=== PATIENT | male | born 1945 | race Hispanic/Latino ===

== ENCOUNTER 2022-05-03 05:44 | Inpatient (IN) | payer OTHER ==
[~2022-05-03] VITALS: Ht 167.6 cm; Wt 72.1 kg
[2022-05-03 06:06] LABS: BASOPHILS % (AUTO) 0.2 % (0.0-5.0); HEMATOCRIT 45.9 % (42-54); LYMPHOCYTES % (AUTO) 3.7 % (21.0-51.0); MEAN CORPUSCULAR HEMOGLOBIN 30.8 pg (27.0-33.0); MEAN CORPUSCULAR VOLUME 90.5 fL (79-99); MONOCYTES % (AUTO) 7.2 % (3.0-13.0); NEUTROPHILS % (AUTO) 87.9 % (40.0-77.0); PLATELET COUNT (AUTO) 170 K/uL (130-400); RED BLOOD CELL COUNT(AUTO) 5.07 MIL/uL (4.50-6.20); RED CELL DISTRIBUTION WIDTH 13.8 % (11.0-15.5)
[2022-05-03 06:08] LABS: WHITE BLOOD COUNT (AUTO) 31.3 K/uL (4.8-10.8)
[2022-05-03 06:26] LABS: ALBUMIN 3.5 g/dL (3.5-5.0); CREATININE 1.8 mg/dL (0.5-1.5); POTASSIUM 3.3 mmol/L (3.5-5.1); TOTAL PROTEIN, SERUM 7.7 g/dL (6.0-8.3)
[2022-05-03 06:27] LABS: APPEARANCE,URINE CLEAR (CLEAR); BILIRUBIN,URINE MODERATE (NEGATIVE); COLOR,URINE AMBER (YELLOW); GLUCOSE, URINE (UA) >=1000 mg/dL (NEGATIVE); KETONES,URINE NEGATIVE (NEGATIVE); LEUKOCYTE ESTERASE ,URINE NEGATIVE (NEGATIVE); NITRATE,URINE POSITIVE (NEGATIVE); OCCULT BLOOD,URINE SMALL (NEGATIVE); PROTEIN,URINE 100 mg/dL (NEGATIVE)
[2022-05-03 06:36] LABS: BACTERIA,URINE Few /HPF (None Seen); WBC,URINE 0-1 /HPF (0-1)
[2022-05-03 06:37] LABS: FINE GRANULAR CASTS,URINE 0-2 /LPF (None Seen)
[2022-05-03] MEDS ORDERED: LEVOFLOXACIN 500 MG/D5W 100 ML 100 ML ONE (06:37)
[2022-05-03] MEDS ORDERED: 0.9%NACL 1000ML 1,000 ML IV SCH (07:00)
[2022-05-03 07:02] LABS: LYMPHOCYTES % (MANUAL) 4 % (22-44); MAN.DIFF COMMENT-IMPRESSION MANUAL DIFFERENTIAL; MONOCYTES % (MANUAL) 6 % (2-9); PLATELET MORPHOLOGY COMMENT ADEQUATE; SEGMENTED NEUTROPHILS % 90 % (40-70)
[2022-05-03] MEDS ORDERED: ZOSYN 3.375GM +NS 50ML IV SCH (08:30)
[2022-05-03] MEDS ORDERED: MORPHINE 2 MG SYG IVP PRN (10:30)
[2022-05-03] MEDS ORDERED: ONDANSETRON 4MG INJ IVP PRN (10:30)
[2022-05-03] MEDS ORDERED: ACETAMINOPHEN 325 MG TAB PO PRN (10:30)
[2022-05-03] MEDS: DEXTROSE 5 % AND 0.9 % NACL 1,000 ML IV SCH ×2 (11:17→21:10)
[2022-05-03 12:09] VITALS: BP 131/59
[2022-05-03 12:14] LABS: INR 1.24 (0.85-1.15); PROTHROMBIN TIME 13.4 SEC (9.6-11.6)
[2022-05-03] MEDS ORDERED: PRAV40TA3 PO (12:14)
[2022-05-03] MEDS ORDERED: OMEP20TA20 PO (12:14)
[2022-05-03] MEDS ORDERED: LISI40TA9 PO (12:14)
[2022-05-03] MEDS ORDERED: HYDR12.54 PO (12:14)
[2022-05-03 12:16] LABS: PARTIAL THROMBOPLASTIN TIME 34.6 SEC (26.3-35.5)
[2022-05-03] MEDS ORDERED: METO25TA6 PO (12:16)
[2022-05-03] MEDS ORDERED: DAPA5TAB PO (12:16)
[2022-05-03 16:20] VITALS: BP 137/67
[2022-05-03 20:25] VITALS: BP 134/66
[2022-05-03] MEDS: ZOSYN 3.375GM +NS 50ML IV SCH (21:10)
[2022-05-03 23:58] VITALS: BP 121/69
[2022-05-04] VITALS (23 sets, daily range): BP systolic 124–173; BP diastolic 62–100
[2022-05-04 06:17] LABS: INR 1.17 (0.85-1.15); PROTHROMBIN TIME 12.6 SEC (9.6-11.6)
[2022-05-04] MEDS ORDERED: D5W IV SCH (09:00)
[2022-05-04] MEDS ORDERED: LEVOFLOXACIN IV SCH (09:00)
[2022-05-04] MEDS: ZOSYN 3.375GM +NS 50ML IV SCH ×2 (09:40→21:57)
[2022-05-04 10:01] LABS: HEMATOCRIT 40.5 % (42-54); MEAN CORPUSCULAR HEMOGLOBIN 30.8 pg (27.0-33.0); MEAN CORPUSCULAR HGB CONC 33.3 g/dL (32.0-36.0); MEAN CORPUSCULAR VOLUME 92.3 fL (79-99); RED BLOOD CELL COUNT(AUTO) 4.39 MIL/uL (4.50-6.20); RED CELL DISTRIBUTION WIDTH 13.9 % (11.0-15.5); WHITE BLOOD COUNT (AUTO) 19.7 K/uL (4.8-10.8)
[2022-05-04 10:34] LABS: CREATININE 1.3 mg/dL (0.5-1.5)
[2022-05-04] MEDS ORDERED: IOHEXOL-350 50ML VIAL IV ONE (13:06)
[2022-05-04] MEDS ORDERED: SUGAMMADEX SODIUM 200 MG/2 ML VIAL IV ONE (15:38)
[2022-05-04] MEDS ORDERED: ROCURONIUM 10MG/1ML SYR 10 MG/ML ML ONE (15:46)
[2022-05-04] MEDS ORDERED: PROPOFOL 10 MG/ML 20ML VIAL IV ONE (15:47)
[2022-05-04] MEDS: POTASSIUM CHLORIDE 20MEQ/100ML 100 ML IV PRN ×2 (17:25→22:01)
[2022-05-04] MEDS: DEXTROSE 5 % AND 0.9 % NACL 1,000 ML IV SCH (22:02)
[2022-05-05] MEDS: DEXTROSE 5 % AND 0.9 % NACL 1,000 ML IV SCH ×2 (03:01→20:49)
[2022-05-05 03:42] VITALS: BP 136/72
[2022-05-05 04:40] LABS: HEMATOCRIT 39.4 % (42-54); MEAN CORPUSCULAR HEMOGLOBIN 30.1 pg (27.0-33.0); MEAN CORPUSCULAR HGB CONC 32.7 g/dL (32.0-36.0); MEAN CORPUSCULAR VOLUME 92.1 fL (79-99); RED BLOOD CELL COUNT(AUTO) 4.28 MIL/uL (4.50-6.20); RED CELL DISTRIBUTION WIDTH 13.7 % (11.0-15.5); WHITE BLOOD COUNT (AUTO) 13.3 K/uL (4.8-10.8)
[2022-05-05 04:50] LABS: CREATININE 1.1 mg/dL (0.5-1.5)
[2022-05-05 05:14] LABS: POTASSIUM 2.7 mmol/L (3.5-5.1)
[2022-05-05] MEDS: LIDOCAINE HCL-MPF 1% 2ML VIAL IV PRN ×2 (05:33→13:25)
[2022-05-05] MEDS: POTASSIUM CHLORIDE 20MEQ/100ML 100 ML IV PRN ×2 (05:33→13:25)
[2022-05-05 08:00] VITALS: BP 146/81
[2022-05-05] MEDS: ZOSYN 3.375GM +NS 50ML IV SCH ×2 (08:24→20:52)
[2022-05-05 12:00] VITALS: BP 139/78
[2022-05-05 16:03] VITALS: BP 145/84
[2022-05-05] MEDS ORDERED: VITAD50000 PO (18:30)
[2022-05-05 20:07] VITALS: BP 148/81
[2022-05-05] MEDS: METOPROLOL TARTRATE 25 MG TAB PO SCH (20:52)
[2022-05-05] MEDS ORDERED: ATORVASTATIN 10 MG TABLET ONE (21:04)
[2022-05-05] MEDS ORDERED: LISINOPRIL 40 MG TABLET ONE (21:04)
[2022-05-06 00:23] VITALS: BP 142/80
[2022-05-06 03:57] VITALS: BP 148/86
[2022-05-06] MEDS: DEXTROSE 5 % AND 0.9 % NACL 1,000 ML IV SCH ×2 (05:10→21:38)
[2022-05-06 05:11] LABS: HEMATOCRIT 37.8 % (42-54); MEAN CORPUSCULAR HEMOGLOBIN 30.3 pg (27.0-33.0); MEAN CORPUSCULAR HGB CONC 33.9 g/dL (32.0-36.0); MEAN CORPUSCULAR VOLUME 89.4 fL (79-99); RED BLOOD CELL COUNT(AUTO) 4.23 MIL/uL (4.50-6.20); RED CELL DISTRIBUTION WIDTH 13.6 % (11.0-15.5); WHITE BLOOD COUNT (AUTO) 10.4 K/uL (4.8-10.8)
[2022-05-06 05:41] LABS: ALBUMIN 2.2 g/dL (3.5-5.0); MAGNESIUM 1.9 mg/dL (1.80-2.40); TOTAL PROTEIN, SERUM 5.9 g/dL (6.0-8.3)
[2022-05-06 05:50] LABS: POTASSIUM 2.5 mmol/L (3.5-5.1)
[2022-05-06] MEDS: POTASSIUM CHLORIDE 10% ELIXIR 20 MEQ/15 ML UDCUP PO PRN ×6 (06:42→23:03)
[2022-05-06] MEDS: POTASSIUM CHLORIDE 20MEQ/100ML 100 ML IV PRN ×2 (06:42→16:58)
[2022-05-06] MEDS: LIDOCAINE HCL-MPF 1% 2ML VIAL IV PRN (06:44)
[2022-05-06 07:49] VITALS: BP 134/74
[2022-05-06] MEDS: METOPROLOL TARTRATE 25 MG TAB PO SCH ×2 (08:28→21:07)
[2022-05-06] MEDS: PANTOPRAZOLE 40 MG TAB DR PO SCH (08:29)
[2022-05-06] MEDS: HYDROCHLOROTHIAZIDE 25 MG TABLET PO SCH (08:29)
[2022-05-06] MEDS: ZOSYN 3.375GM +NS 50ML IV SCH ×2 (08:29→21:04)
[2022-05-06] MEDS ORDERED: DAPAGLIFLOZIN PROPANEDIOL 5 MG PO SCH (09:00)
[2022-05-06] MEDS ORDERED: LISINOPRIL 40 MG TABLET PO SCH (09:00)
[2022-05-06] MEDS ORDERED: ATORVASTATIN 10 MG TABLET PO SCH (09:00)
[2022-05-06] MEDS ORDERED: HOME MEDICATION 1 EACH PO SCH (09:00)
[2022-05-06 11:25] VITALS: BP 144/85
[2022-05-06] MEDS: ARTIFICAL TEARS SOL 15 ML OU SCH ×2 (14:24→21:08)
[2022-05-06 15:23] VITALS: BP 147/87
[2022-05-06 20:07] VITALS: BP 140/85
[2022-05-06] MEDS: TAMSULOSIN HCL 0.4 MG CAP.ER.24H PO SCH (21:05)
[2022-05-06] MEDS: ATORVASTATIN 10 MG TABLET PO SCH (21:05)
[2022-05-06] MEDS: LISINOPRIL 40 MG TABLET PO SCH (21:07)
[2022-05-06] MEDS ORDERED: HALOPERIDOL INJ 5 MG/ML VIAL IM SCH (22:00)
[2022-05-07 00:56] VITALS: BP 143/83
[2022-05-07 05:17] VITALS: BP 137/74
[2022-05-07] MEDS: DEXTROSE 5 % AND 0.9 % NACL 1,000 ML IV SCH ×2 (07:50→17:17)
[2022-05-07 07:53] VITALS: BP 142/76
[2022-05-07] MEDS: METOPROLOL TARTRATE 25 MG TAB PO SCH ×2 (09:50→21:19)
[2022-05-07] MEDS: ZOSYN 3.375GM +NS 50ML IV SCH ×2 (09:50→21:19)
[2022-05-07] MEDS: PANTOPRAZOLE 40 MG TAB DR PO SCH (09:50)
[2022-05-07] MEDS: HYDROCHLOROTHIAZIDE 25 MG TABLET PO SCH (09:50)
[2022-05-07] MEDS: **HM** FARXIGA 5MG PO SCH (09:51)
[2022-05-07] MEDS: ARTIFICAL TEARS SOL 15 ML OU SCH ×3 (09:52→21:29)
[2022-05-07 11:22] VITALS: BP 134/76
[2022-05-07] MEDS ORDERED: IOHEXOL 350 MG/ML 100ML INFUS..BTL IV ONE (11:56)
[2022-05-07 15:45] VITALS: BP 142/77
[2022-05-07] MEDS: POTASSIUM CHLORIDE 10% ELIXIR 20 MEQ/15 ML UDCUP PO PRN ×2 (17:26→21:20)
[2022-05-07 20:00] VITALS: BP 137/79
[2022-05-07] MEDS: TAMSULOSIN HCL 0.4 MG CAP.ER.24H PO SCH (21:20)
[2022-05-07] MEDS: LISINOPRIL 40 MG TABLET PO SCH (21:20)
[2022-05-07] MEDS: ATORVASTATIN 10 MG TABLET PO SCH (21:20)
[2022-05-08] VITALS (7 sets, daily range): BP systolic 120–143; BP diastolic 67–86
[2022-05-08 04:47] LABS: HEMATOCRIT 38.9 % (42-54); MEAN CORPUSCULAR HEMOGLOBIN 29.8 pg (27.0-33.0); MEAN CORPUSCULAR HGB CONC 33.9 g/dL (32.0-36.0); MEAN CORPUSCULAR VOLUME 87.8 fL (79-99); RED BLOOD CELL COUNT(AUTO) 4.43 MIL/uL (4.50-6.20); RED CELL DISTRIBUTION WIDTH 14.2 % (11.0-15.5); WHITE BLOOD COUNT (AUTO) 11.4 K/uL (4.8-10.8)
[2022-05-08 06:34] LABS: CREATININE 1.1 mg/dL (0.5-1.5); MAGNESIUM 1.9 mg/dL (1.80-2.40); PHOSPHORUS 2.2 mg/dL (2.5-4.9); POTASSIUM 3.3 mmol/L (3.5-5.1)
[2022-05-08] MEDS: HYDROCHLOROTHIAZIDE 25 MG TABLET PO SCH (09:10)
[2022-05-08] MEDS: METOPROLOL TARTRATE 25 MG TAB PO SCH ×2 (09:10→20:59)
[2022-05-08] MEDS: ZOSYN 3.375GM +NS 50ML IV SCH ×2 (09:10→20:59)
[2022-05-08] MEDS: PANTOPRAZOLE 40 MG TAB DR PO SCH (09:10)
[2022-05-08] MEDS: POTASSIUM CHLORIDE 10% ELIXIR 20 MEQ/15 ML UDCUP PO PRN ×2 (09:11→13:31)
[2022-05-08] MEDS: ARTIFICAL TEARS SOL 15 ML OU SCH ×3 (09:11→21:00)
[2022-05-08] MEDS: **HM** FARXIGA 5MG PO SCH (09:13)
[2022-05-08] MEDS: DEXTROSE 5 % AND 0.9 % NACL 1,000 ML IV SCH (09:23)
[2022-05-08] MEDS ORDERED: MAGNESIUM 2GM PREMIX 50ML 50 ML IV PRN (18:00)
[2022-05-08] MEDS: LISINOPRIL 40 MG TABLET PO SCH (21:00)
[2022-05-08] MEDS: TAMSULOSIN HCL 0.4 MG CAP.ER.24H PO SCH (21:00)
[2022-05-08] MEDS: ATORVASTATIN 10 MG TABLET PO SCH (21:00)
[2022-05-09 03:05] VITALS: BP 132/67
[2022-05-09] MEDS: DEXTROSE 5 % AND 0.9 % NACL 1,000 ML IV SCH ×3 (04:10→19:18)
[2022-05-09 07:43] VITALS: BP 122/71
[2022-05-09] MEDS: PANTOPRAZOLE 40 MG TAB DR PO SCH (08:42)
[2022-05-09] MEDS: HYDROCHLOROTHIAZIDE 25 MG TABLET PO SCH (08:42)
[2022-05-09] MEDS: METOPROLOL TARTRATE 25 MG TAB PO SCH ×2 (08:42→22:09)
[2022-05-09] MEDS: ZOSYN 3.375GM +NS 50ML IV SCH ×2 (08:45→22:11)
[2022-05-09] MEDS: ARTIFICAL TEARS SOL 15 ML OU SCH ×3 (08:45→22:12)
[2022-05-09] MEDS: **HM** FARXIGA 5MG PO SCH (08:46)
[2022-05-09 10:51] VITALS: BP 120/67
[2022-05-09] MEDS: POTASSIUM CHLORIDE 10% ELIXIR 20 MEQ/15 ML UDCUP PO PRN ×3 (11:56→22:10)
[2022-05-09 16:12] VITALS: BP 140/80
[2022-05-09 20:01] VITALS: BP 129/81
[2022-05-09] MEDS: LISINOPRIL 40 MG TABLET PO SCH (22:09)
[2022-05-09] MEDS: ATORVASTATIN 10 MG TABLET PO SCH (22:09)
[2022-05-09] MEDS: TAMSULOSIN HCL 0.4 MG CAP.ER.24H PO SCH (22:09)
[2022-05-09 23:42] VITALS: BP 147/75
[2022-05-10] VITALS (25 sets, daily range): BP systolic 103–157; BP diastolic 53–79
[2022-05-10 05:19] LABS: HEMATOCRIT 37.3 % (42-54); MEAN CORPUSCULAR HGB CONC 33.2 g/dL (32.0-36.0); MEAN CORPUSCULAR VOLUME 90.1 fL (79-99); RED BLOOD CELL COUNT(AUTO) 4.14 MIL/uL (4.50-6.20); RED CELL DISTRIBUTION WIDTH 15.2 % (11.0-15.5); WHITE BLOOD COUNT (AUTO) 11.4 K/uL (4.8-10.8)
[2022-05-10 05:36] LABS: ALBUMIN 2.2 g/dL (3.5-5.0); CREATININE 1.2 mg/dL (0.5-1.5); MAGNESIUM 1.9 mg/dL (1.80-2.40); POTASSIUM 3.6 mmol/L (3.5-5.1); TOTAL PROTEIN, SERUM 6.2 g/dL (6.0-8.3)
[2022-05-10] MEDS: PANTOPRAZOLE 40 MG TAB DR PO SCH (08:54)
[2022-05-10] MEDS: HYDROCHLOROTHIAZIDE 25 MG TABLET PO SCH (08:54)
[2022-05-10] MEDS: **HM** FARXIGA 5MG PO SCH (08:54)
[2022-05-10] MEDS: ZOSYN 3.375GM +NS 50ML IV SCH ×2 (08:55→20:57)
[2022-05-10] MEDS: METOPROLOL TARTRATE 25 MG TAB PO SCH ×2 (09:00→20:57)
[2022-05-10] MEDS: ARTIFICAL TEARS SOL 15 ML OU SCH ×3 (09:06→20:57)
[2022-05-10] MEDS ORDERED: CEFAZOLIN SODIUM 1 GM VIAL ONE (11:38)
[2022-05-10] MEDS ORDERED: BUPIVACAINE/PF 0.25% 30ML VIAL IJ ONE (11:38)
[2022-05-10] MEDS ORDERED: LIDOCAINE 1%-EPI 1:100,000 20 ML VIAL IJ ONE (11:38)
[2022-05-10] MEDS ORDERED: 0.9%NACL 1000ML 1,000 ML IV ONE (12:07)
[2022-05-10] MEDS ORDERED: GLYCOPYRROLATE 1 MG/5 ML SYRINGE ONE (13:19)
[2022-05-10] MEDS ORDERED: SUCCINYLCHOLINE CHLORIDE 20 MG/ML 10 ML VIAL ONE (13:19)
[2022-05-10] MEDS ORDERED: DEXAMETHASONE SOD PHOSPHATE 10MG/ML 1ML VIAL ONE (13:19)
[2022-05-10] MEDS ORDERED: PROPOFOL 10 MG/ML 20ML VIAL IV ONE (13:20)
[2022-05-10] MEDS ORDERED: NEOSTIGMINE 5MG/5ML SYR IV ONE (13:20)
[2022-05-10] MEDS ORDERED: MIDAZOLAM HCL 1 MG/ML 2ML VIAL ONE (13:20)
[2022-05-10] MEDS ORDERED: ROCURONIUM 10MG/1ML SYR 10 MG/ML ML ONE (13:20)
[2022-05-10] MEDS ORDERED: FENTANYL CITRATE PF 50 MCG/1 ML 2ML VIAL ONE ×2 (13:20→14:35)
[2022-05-10] MEDS ORDERED: EPHEDRINE SULFATE 50 MG/ML AMPULE ONE (13:39)
[2022-05-10] MEDS ORDERED: OXYCODONE/ACETAMIN 5/325MG TAB PO PRN (18:30)
[2022-05-10] MEDS: ATORVASTATIN 10 MG TABLET PO SCH (20:57)
[2022-05-10] MEDS: TAMSULOSIN HCL 0.4 MG CAP.ER.24H PO SCH (20:57)
[2022-05-10] MEDS: DEXTROSE 5 % AND 0.9 % NACL 1,000 ML IV SCH (21:08)
[2022-05-10] MEDS: LISINOPRIL 40 MG TABLET PO SCH (22:54)
[2022-05-11] VITALS: BP 138/83
[2022-05-11 04:00] VITALS: BP 142/69
[2022-05-11] MEDS: DEXTROSE 5 % AND 0.9 % NACL 1,000 ML IV SCH ×2 (04:14→19:17)
[2022-05-11 05:01] LABS: BASOPHILS % (AUTO) 0.4 % (0.0-5.0); EOSINOPHILS % (AUTO) 0.4 % (0.0-8.0); HEMATOCRIT 41.1 % (42-54); LYMPHOCYTES % (AUTO) 6.8 % (21.0-51.0); MEAN CORPUSCULAR HEMOGLOBIN 29.8 pg (27.0-33.0); MEAN CORPUSCULAR HGB CONC 32.4 g/dL (32.0-36.0); MEAN CORPUSCULAR VOLUME 91.9 fL (79-99); NEUTROPHILS % (AUTO) 83.7 % (40.0-77.0); PLATELET COUNT (AUTO) 187 K/uL (130-400); RED BLOOD CELL COUNT(AUTO) 4.47 MIL/uL (4.50-6.20); RED CELL DISTRIBUTION WIDTH 15.3 % (11.0-15.5); WHITE BLOOD COUNT (AUTO) 16.3 K/uL (4.8-10.8)
[2022-05-11 05:29] LABS: ALBUMIN 2.3 g/dL (3.5-5.0); POTASSIUM 3.7 mmol/L (3.5-5.1); TOTAL PROTEIN, SERUM 6.5 g/dL (6.0-8.3)
[2022-05-11 07:14] VITALS: BP 132/68
[2022-05-11] MEDS: ZOSYN 3.375GM +NS 50ML IV SCH ×2 (09:22→20:11)
[2022-05-11] MEDS: PANTOPRAZOLE 40 MG TAB DR PO SCH (09:22)
[2022-05-11] MEDS: HYDROCHLOROTHIAZIDE 25 MG TABLET PO SCH (09:22)
[2022-05-11] MEDS: METOPROLOL TARTRATE 25 MG TAB PO SCH ×2 (09:23→20:11)
[2022-05-11] MEDS: **HM** FARXIGA 5MG PO SCH (09:25)
[2022-05-11] MEDS: ARTIFICAL TEARS SOL 15 ML OU SCH ×3 (09:26→20:11)
[2022-05-11 12:06] VITALS: BP 138/75
[2022-05-11 16:15] VITALS: BP 120/65
[2022-05-11 20:00] VITALS: BP 134/70
[2022-05-11] MEDS: ATORVASTATIN 10 MG TABLET PO SCH (20:10)
[2022-05-11] MEDS: TAMSULOSIN HCL 0.4 MG CAP.ER.24H PO SCH (20:10)
[2022-05-11] MEDS: LISINOPRIL 40 MG TABLET PO SCH (20:10)
[2022-05-12] VITALS: BP 132/72
[2022-05-12 04:00] VITALS: BP 104/54
[2022-05-12] MEDS: DEXTROSE 5 % AND 0.9 % NACL 1,000 ML IV SCH (05:55)
[2022-05-12] MEDS: HYDROCHLOROTHIAZIDE 25 MG TABLET PO SCH (09:10)
[2022-05-12] MEDS: PANTOPRAZOLE 40 MG TAB DR PO SCH (09:10)
[2022-05-12] MEDS: METOPROLOL TARTRATE 25 MG TAB PO SCH ×2 (09:10→22:40)
[2022-05-12] MEDS: ZOSYN 3.375GM +NS 50ML IV SCH ×2 (09:10→22:40)
[2022-05-12] MEDS: ARTIFICAL TEARS SOL 15 ML OU SCH ×3 (09:11→22:42)
[2022-05-12] MEDS: **HM** FARXIGA 5MG PO SCH (09:11)
[2022-05-12 09:13] VITALS: BP 140/70
[2022-05-12 12:04] VITALS: BP 138/71
[2022-05-12 13:15] LABS: HEMATOCRIT 38.9 % (42-54); MEAN CORPUSCULAR HGB CONC 32.1 g/dL (32.0-36.0); MEAN CORPUSCULAR VOLUME 93.3 fL (79-99); RED BLOOD CELL COUNT(AUTO) 4.17 MIL/uL (4.50-6.20); RED CELL DISTRIBUTION WIDTH 14.8 % (11.0-15.5); WHITE BLOOD COUNT (AUTO) 13.9 K/uL (4.8-10.8)
[2022-05-12 13:26] LABS: CREATININE 1.2 mg/dL (0.5-1.5); POTASSIUM 3.4 mmol/L (3.5-5.1)
[2022-05-12 16:52] VITALS: BP 109/59
[2022-05-12 20:20] VITALS: BP 120/68
[2022-05-12] MEDS: TAMSULOSIN HCL 0.4 MG CAP.ER.24H PO SCH (22:40)
[2022-05-12] MEDS: LISINOPRIL 40 MG TABLET PO SCH (22:40)
[2022-05-12] MEDS: ATORVASTATIN 10 MG TABLET PO SCH (22:40)
[2022-05-13 00:31] VITALS: BP 126/71
[2022-05-13 04:53] VITALS: BP 108/55
[2022-05-13 05:09] LABS: HEMATOCRIT 34.8 % (42-54); MEAN CORPUSCULAR HEMOGLOBIN 30.2 pg (27.0-33.0); MEAN CORPUSCULAR HGB CONC 32.8 g/dL (32.0-36.0); MEAN CORPUSCULAR VOLUME 92.1 fL (79-99); RED BLOOD CELL COUNT(AUTO) 3.78 MIL/uL (4.50-6.20); RED CELL DISTRIBUTION WIDTH 14.3 % (11.0-15.5); WHITE BLOOD COUNT (AUTO) 12.8 K/uL (4.8-10.8)
[2022-05-13 05:11] LABS: CREATININE 1.1 mg/dL (0.5-1.5); MAGNESIUM 2.1 mg/dL (1.80-2.40); POTASSIUM 3.3 mmol/L (3.5-5.1)
[2022-05-13] MEDS: DEXTROSE 5 % AND 0.9 % NACL 1,000 ML IV SCH ×3 (06:39→22:00)
[2022-05-13] MEDS: KCL 20 MEQ ERTAB PO PRN (06:39)
[2022-05-13 08:00] VITALS: BP 110/66
[2022-05-13] MEDS: METOPROLOL TARTRATE 25 MG TAB PO SCH ×2 (09:03→22:01)
[2022-05-13] MEDS: PANTOPRAZOLE 40 MG TAB DR PO SCH (09:03)
[2022-05-13] MEDS: ZOSYN 3.375GM +NS 50ML IV SCH ×2 (09:03→22:01)
[2022-05-13] MEDS: HYDROCHLOROTHIAZIDE 25 MG TABLET PO SCH (09:03)
[2022-05-13] MEDS: **HM** FARXIGA 5MG PO SCH (09:04)
[2022-05-13] MEDS: ARTIFICAL TEARS SOL 15 ML OU SCH ×3 (09:04→22:01)
[2022-05-13 12:00] VITALS: BP 124/60
[2022-05-13 16:00] VITALS: BP 141/65
[2022-05-13 20:01] VITALS: BP 132/73
[2022-05-13] MEDS: TAMSULOSIN HCL 0.4 MG CAP.ER.24H PO SCH (22:01)
[2022-05-13] MEDS: ATORVASTATIN 10 MG TABLET PO SCH (22:01)
[2022-05-13] MEDS: LISINOPRIL 40 MG TABLET PO SCH (22:01)
[2022-05-14] VITALS (7 sets, daily range): BP systolic 108–139; BP diastolic 58–76
[2022-05-14] MEDS: KCL 20 MEQ ERTAB PO PRN ×2 (07:01→12:16)
[2022-05-14] MEDS: METOPROLOL TARTRATE 25 MG TAB PO SCH ×2 (08:54→21:03)
[2022-05-14] MEDS: ZOSYN 3.375GM +NS 50ML IV SCH ×2 (08:54→21:03)
[2022-05-14] MEDS: ARTIFICAL TEARS SOL 15 ML OU SCH ×3 (08:54→21:03)
[2022-05-14] MEDS: PANTOPRAZOLE 40 MG TAB DR PO SCH (08:55)
[2022-05-14] MEDS: HYDROCHLOROTHIAZIDE 25 MG TABLET PO SCH (08:55)
[2022-05-14] MEDS: **HM** FARXIGA 5MG PO SCH (08:56)
[2022-05-14] MEDS: DEXTROSE 5 % AND 0.9 % NACL 1,000 ML IV SCH (12:18)
[2022-05-14] MEDS: ATORVASTATIN 10 MG TABLET PO SCH (21:03)
[2022-05-14] MEDS: TAMSULOSIN HCL 0.4 MG CAP.ER.24H PO SCH (21:03)
[2022-05-14] MEDS: LISINOPRIL 40 MG TABLET PO SCH (21:03)
[2022-05-15] MEDS: DEXTROSE 5 % AND 0.9 % NACL 1,000 ML IV SCH (02:30)
[2022-05-15 02:58] VITALS: BP 98/55
[2022-05-15 05:27] LABS: HEMATOCRIT 39.1 % (42-54); MEAN CORPUSCULAR HEMOGLOBIN 29.8 pg (27.0-33.0); MEAN CORPUSCULAR HGB CONC 32.7 g/dL (32.0-36.0); MEAN CORPUSCULAR VOLUME 90.9 fL (79-99); RED BLOOD CELL COUNT(AUTO) 4.3 MIL/uL (4.50-6.20); WHITE BLOOD COUNT (AUTO) 12.1 K/uL (4.8-10.8)
[2022-05-15 05:49] LABS: ALBUMIN 2.6 g/dL (3.5-5.0); CREATININE 1.2 mg/dL (0.5-1.5); MAGNESIUM 2.2 mg/dL (1.80-2.40); POTASSIUM 3.8 mmol/L (3.5-5.1); TOTAL PROTEIN, SERUM 7.3 g/dL (6.0-8.3)
[2022-05-15] MEDS ORDERED: PANTOPRAZOLE 40 MG TAB DR PO SCH (07:30)
[2022-05-15 08:00] VITALS: BP 109/72
[2022-05-15] MEDS: ZOSYN 3.375GM +NS 50ML IV SCH (08:59)
[2022-05-15] MEDS: HYDROCHLOROTHIAZIDE 25 MG TABLET PO SCH (09:00)
[2022-05-15] MEDS: ARTIFICAL TEARS SOL 15 ML OU SCH (09:00)
[2022-05-15] MEDS: METOPROLOL TARTRATE 25 MG TAB PO SCH (09:00)
[2022-05-15] MEDS: **HM** FARXIGA 5MG PO SCH (09:02)
[2022-05-15 12:00] VITALS: BP 105/72
[2022-05-15 16:00] VITALS: BP 98/62
== END 2022-05-15 18:40 | disposition home or self-care (01) | DRG 853 ==
LOC: EDH 05:44 → EDHIP 08:50 → 3DH 11:59
PROVIDERS: ADMIT Internal Medicine Infectious Disease; ATTEND Internal Medicine Infectious Disease
PROC: 0FC98ZZ Extirpation of Matter from Common Bile Duct, Via Natural or Artificial Opening Endoscopic (ICD-10-PCS; 2022-05-04)
PROC: BF131ZZ Fluoroscopy of Gallbladder and Bile Ducts using Low Osmolar Contrast (ICD-10-PCS; 2022-05-04)
PROC: 0FT44ZZ Resection of Gallbladder, Percutaneous Endoscopic Approach (ICD-10-PCS; principal; 2022-05-10 13:24)
DX: A41.50 Gram-negative sepsis, unspecified (principal); G93.41 Metabolic encephalopathy; K80.42 Calculus of bile duct with acute cholecystitis without obstruction; K82.1 Hydrops of gallbladder; E66.9 Obesity, unspecified; Z68.25 Body mass index [BMI] 25.0-25.9, adult; E78.5 Hyperlipidemia, unspecified; Z20.822 Contact with and (suspected) exposure to COVID-19; E78.00 Pure hypercholesterolemia, unspecified; E11.22 Type 2 diabetes mellitus with diabetic chronic kidney disease; I12.9 Hypertensive chronic kidney disease with stage 1 through stage 4 chronic kidney disease, or unspecified chronic kidney disease; N18.9 Chronic kidney disease, unspecified; Z83.3 Family history of diabetes mellitus; R54 Age-related physical debility; Z87.891 Personal history of nicotine dependence; R33.8 Other retention of urine; G30.9 Alzheimer's disease, unspecified; F02.80 Dementia in other diseases classified elsewhere, unspecified severity, without behavioral disturbance, psychotic disturbance, mood disturbance, and anxiety; E87.6 Hypokalemia; Z96.652 Presence of left artificial knee joint
CPT/HCPCS: 36415; 43262; 43264; 71045; 74176; 74178; 74181; 74330; 76705; 78226; 80048; 80053; 81001; 82140; 82150; 82270; 82948; 83605; 83630; 83690; 83735; 84100; 84132; 84484; 85025; 85027; 85610; 85730; 87040; 87046; 87088; 87507; 87635; 88304; 93005; 97039; A4606; A9537; C1769; C1773; G0378; G9654; J0330; J0690; J1100; J1630; J1956; J2250; J2543; J2704; J2710; J3010; J3475; J3480; J3490; J7030; J7042; Q9967

== ENCOUNTER 2023-12-16 19:20 | Emergency (ER) | payer OTHER ==
[~2023-12-16] VITALS: Ht 170.2 cm; Wt 68.5 kg
[~2023-12-16 19:20] MED LIST: DAPA5TAB PO; HYDR12.54 PO; LISI40TA9 PO; METO25TA6 PO; OMEP20TA20 PO; PRAV40TA3 PO; VITAD50000 PO
[2023-12-16 19:51] LABS: BASOPHILS # (AUTO) 0.05 K/uL (0.00-0.20); BASOPHILS % (AUTO) 0.4 % (0.0-5.0); EOSINOPHILS # (AUTO) 0.23 K/uL (0.00-0.70); EOSINOPHILS % (AUTO) 1.9 % (0.0-8.0); HEMATOCRIT 34.8 % (42-54); IMMATURE GRANULOCYTE ABSOLUTE 0.05 K/uL (0-1); LYMPHOCYTES # (AUTO) 2.5 K/uL (1.0-4.8); LYMPHOCYTES % (AUTO) 20.4 % (21.0-51.0); MEAN CORPUSCULAR HEMOGLOBIN 31.8 pg (27.0-33.0); MEAN CORPUSCULAR HGB CONC 34.5 g/dL (32.0-36.0); MEAN CORPUSCULAR VOLUME 92.3 fL (79-99); MONOCYTES % (AUTO) 8.6 % (3.0-13.0); NEUTROPHILS # (AUTO) 8.2 K/uL (1.8-7.7); NEUTROPHILS % (AUTO) 68.3 % (40.0-77.0); PLATELET COUNT (AUTO) 154 K/uL (130-400); RED BLOOD CELL COUNT(AUTO) 3.77 MIL/uL (4.50-6.20); RED CELL DISTRIBUTION WIDTH 13.5 % (11.0-15.5)
[2023-12-16 20:01] LABS: CREATININE 1.3 mg/dL (0.5-1.5); POTASSIUM 3.6 mmol/L (3.5-5.1)
[2023-12-16 22:21] LABS: CREATININE 1.2 mg/dL (0.5-1.5); POTASSIUM 3.4 mmol/L (3.5-5.1)
[2023-12-16 22:27] LABS: ALBUMIN 3.1 g/dL (3.5-5.0); BILIRUBIN,DIRECT 0.2 mg/dL (0.0-0.3); BILIRUBIN,TOTAL 0.5 mg/dL (0.2-1.0); TOTAL PROTEIN, SERUM 6.8 g/dL (6.0-8.3)
[2023-12-16 22:39] LABS: ADD UA MICROSCOPIC YES; APPEARANCE,URINE CLEAR (CLEAR); BILIRUBIN,URINE NEGATIVE (NEGATIVE); COLOR,URINE LIGHT-YELLOW (YELLOW); GLUCOSE, URINE (UA) >=1000 mg/dL (NEGATIVE); KETONES,URINE NEGATIVE (NEGATIVE); LEUKOCYTE ESTERASE ,URINE NEGATIVE Leu/uL (NEGATIVE); NITRATE,URINE NEGATIVE (NEGATIVE); OCCULT BLOOD,URINE NEGATIVE (NEGATIVE); PH,URINE 6.5 (5.0-8.0); PROTEIN,URINE NEGATIVE (NEGATIVE); UROBILINOGEN,URINE 0.2 mg/dL (0.2-1.0)
[2023-12-16 22:41] LABS: RBC,URINE 0-1 /HPF (0-1); WBC,URINE 0-1 /HPF (0-1)
[2023-12-16] MEDS ORDERED: IBUP-2077 PO (22:48)
[2023-12-16 23:22] VITALS: BP 125/65; PULSE 78; RESP 17; O2SAT 100
== END 2023-12-16 23:42 | disposition home or self-care (01) ==
LOC: EDH 19:20
DX: R10.2 Pelvic and perineal pain (principal); R16.0 Hepatomegaly, not elsewhere classified; N28.1 Cyst of kidney, acquired; E78.00 Pure hypercholesterolemia, unspecified; F02.80 Dementia in other diseases classified elsewhere, unspecified severity, without behavioral disturbance, psychotic disturbance, mood disturbance, and anxiety; I10 Essential (primary) hypertension; Z79.84 Long term (current) use of oral hypoglycemic drugs; Z79.899 Other long term (current) drug therapy; Z90.49 Acquired absence of other specified parts of digestive tract
CPT/HCPCS: 36415; 74176; 76705; 80048; 80076; 81001; 82550; 83605; 83690; 84484; 85025; 87040; 87088; 93005